=== PATIENT | male | born 1995 | race Caucasian/White ===

== ENCOUNTER 2017-03-26 05:42 | Emergency (ER) | payer OTHER ==
[~2017-03-26] VITALS: Ht 175.3 cm; Wt 113.4 kg
[~2017-03-26 05:42] MED LIST: HYDR1TAB94 PO; Percocet 5-3251 EACH PO; Zantac150 MG PO
[2017-03-26] MEDS ORDERED: Cephalexin250 MG/5 M PO (06:51)
== END 2017-03-26 07:14 | disposition home or self-care (01) ==
LOC: ER 05:42
DX: J03.90 Acute tonsillitis, unspecified (principal); F17.220 Nicotine dependence, chewing tobacco, uncomplicated
CPT/HCPCS: 96372; 99283; J0696; J1100

== ENCOUNTER 2018-06-28 13:31 | Emergency (ER) | payer OTHER ==
[~2018-06-28] VITALS: Ht 175.3 cm; Wt 108.0 kg
[~2018-06-28 13:31] MED LIST changes: +Cephalexin250 MG/5 M PO
== END 2018-06-28 15:05 | disposition home or self-care (01) ==
LOC: ER 13:31
DX: J03.90 Acute tonsillitis, unspecified (principal); F17.220 Nicotine dependence, chewing tobacco, uncomplicated
CPT/HCPCS: 87081; 87430; 99283; J1100

== ENCOUNTER 2021-02-11 20:08 | Emergency (ER) | payer OTHER ==
[~2021-02-11] VITALS: Ht 177.8 cm; Wt 97.5 kg
== END 2021-02-11 22:10 | disposition home or self-care (01) ==
LOC: ER 20:08
DX: S06.0X9A Concussion with loss of consciousness of unspecified duration, initial encounter (principal); F17.220 Nicotine dependence, chewing tobacco, uncomplicated; V49.40XA Driver injured in collision with unspecified motor vehicles in traffic accident, initial encounter
CPT/HCPCS: 70450; 72125; 99284-25

== ENCOUNTER 2021-09-06 01:52 | Emergency (ER) | payer OTHER ==
[2021-09-06 04:02] LABS: BASOPHILS ABSOLUTE AUTO 0.04 K/mm3 (0.00-0.23); BASOPHILS PERCENT AUTO 1 % (0-2); EOSINOPHILS ABSOLUTE AUTO 0.18 K/mm3 (0.00-0.68); EOSINOPHILS PERCENT AUTO 2 % (0-6); Hematocrit 43.6 % (37.0-53.0); Hemoglobin 15.6 g/dL (13.5-17.5); IMMATURE GRAN ABSOLUTE AUTO 0.02 K/mm3 (0.00-0.10); IMMATURE GRAN PERCENT AUTO 0 % (0-1); LYMPHOCYTES ABSOLUTE AUTO 2.04 K/mm3 (0.84-5.20); LYMPHOCYTES PERCENT AUTO 26 % (21-46); MONOCYTES ABSOLUTE AUTO 0.79 K/mm3 (0.16-1.47); MONOCYTES PERCENT AUTO 10 % (4-13); Mean Corpuscular HGB 31.6 pg (26.0-34.0); Mean Corpuscular HGB Conc 35.8 g/dL (31.5-36.5); Mean Corpuscular Volume 88 fL (80-100); Mean Platelet Volume 9.8 fL (9.1-12.4); NEUTROPHILS ABSOLUTE AUTO 4.83 K/mm3 (1.96-9.15); NEUTROPHILS PERCENT AUTO 61 % (41-73); Platelet Count 222 K/mm3 (150-400); RDW Coefficient Variation 12.8 % (11.7-14.2); RDW Standard Deviation 41.2 fL (35.1-46.3); Red Blood Cell Count 4.93 M/mm3 (4.30-5.90)
[2021-09-06 04:20] LABS: Albumin, Blood 3.9 g/dL (3.4-5.0); Albumin/Globulin Ratio 1.2 (0.8-1.8); Bilirubin, Total 0.4 mg/dL (0.1-1.0); Bun/Creatinine Ratio 12.6 (12.0-20.0); Creatinine, Blood 0.79 mg/dL (0.60-1.20); Globulin, Blood 3.3 g/dL (2.2-4.0); Total Protein, Blood 7.2 g/dL (6.4-8.2)
[2021-09-06 07:37] LABS: U Amphetamine Screen Not Detected; U Methamphetamine Screen Not Detected
[2021-09-06 07:38] LABS: U Barbituate Screen Not Detected; U Benzodiazapine Screen Not Detected; U Buprenorphine Screen Not Detected; U Cannabinoids Screen Not Detected; U Cocaine Screen DETECTED; U Methadone Screen Not Detected; U Opiates Screen Not Detected; U Oxycodone Screen Not Detected; U Phencyclidine Screen Not Detected; U Propoxyphene Screen Not Detected
== END 2021-09-06 07:30 | disposition home or self-care (01) ==
LOC: ER 01:52
PROVIDERS: Student in an Organized Health Care Education/Training Program
DX: S01.111A Laceration without foreign body of right eyelid and periocular area, initial encounter (principal); S00.83XA Contusion of other part of head, initial encounter; S20.211A Contusion of right front wall of thorax, initial encounter; V48.5XXA Car driver injured in noncollision transport accident in traffic accident, initial encounter; F10.129 Alcohol abuse with intoxication, unspecified; F17.220 Nicotine dependence, chewing tobacco, uncomplicated
CPT/HCPCS: 70450; 70486; 71260; 72125; 74177; 80053; 83690; 85025; G0480; Q9967

== ENCOUNTER 2024-05-23 08:27 | Day surgery (SDC) | payer BC, OTHER ==
[~2024-05-23] VITALS: Ht 177.8 cm; Wt 112.5 kg
[~2024-05-23 08:27] MED LIST changes: +Dexamethasone Sod Phos 10 MG/ML 1ML VIAL ONE; +FentaNYL Citrate 50 MCG/ML 2 ML Injection ONE; +Lactated Ringer's 1,000 ML IV ONE; +Ondansetron HCl 2 MG / ML 2ML Vial ONE; +Rocuronium Bromide 10 MG/ML 5ML Injection IV ONE; +Sugammadex Sodium 200 MG/2ML SDV (100 MG/ML) ONE; +propofoL 20 ML IV ONE
[2024-05-23] MEDS ORDERED: Dexmedetomidine HCL 200 MCG / 2 ML ONE (09:04)
[2024-05-23] MEDS ORDERED: Lactated Ringer's 1,000 ML IV ONE (09:11)
[2024-05-23] MEDS ORDERED: Midazolam HCl 1MG / ML 2ML Vial ONE (09:12)
[2024-05-23] MEDS ORDERED: FentaNYL Citrate 50 MCG/ML 2 ML Injection ONE (09:34)
--- NOTE | 2024-05-23 09:54 | NUR ---
05/23/24 0954 Alia Yanez PT TO PACU, SLEEPING WITH ORAL AIRWAY IN UPON ARRIVAL. PT SUPINE, HOB 30 DEGREES. IV PATENT. VSS. PT ON 15L NRB. SKIN PINK AND WARM. PT NOT AROUSABLE TO VERBAL STIMULI AT THIS TIME.
--- NOTE | 2024-05-23 10:23 | NUR ---
05/23/24 1023 Alia Yanez PT REQUESTING PHONE UPON ARRIVAL TO STEP DOWN. PATIENT SITTING UP TALKING. STATES PAIN IS 6/10, BUT DECLINES PAIN MEDICATION AT THIS TIME. DR JACKSON AT BEDSIDE SHORTLY. VSS.
[2024-05-23 10:24] VITALS: BP 123/74
== END 2024-05-23 11:04 | disposition home or self-care (01) ==
LOC: ORSCSDS 08:27
PROVIDERS: Otolaryngology
PROC: 0CBPXZZ Excision of Tonsils, External Approach (ICD-10-PCS; principal; 2024-05-23 10:00)
DX: J35.8 Other chronic diseases of tonsils and adenoids (principal); J03.91 Acute recurrent tonsillitis, unspecified; D10.4 Benign neoplasm of tonsil; G47.33 Obstructive sleep apnea (adult) (pediatric); E66.9 Obesity, unspecified; Z68.35 Body mass index [BMI] 35.0-35.9, adult; Z87.891 Personal history of nicotine dependence
CPT/HCPCS: 88304; J1100; J2250; J2405; J2704; J3010; J7120

== ENCOUNTER 2024-05-29 00:47 | Emergency (ER) | payer OTHER ==
[~2024-05-29] VITALS: Ht 177.8 cm; Wt 61.2 kg
[~2024-05-29 00:47] MED LIST changes: -Dexamethasone Sod Phos 10 MG/ML 1ML VIAL ONE; -FentaNYL Citrate 50 MCG/ML 2 ML Injection ONE; -Lactated Ringer's 1,000 ML IV ONE; -Ondansetron HCl 2 MG / ML 2ML Vial ONE; -Rocuronium Bromide 10 MG/ML 5ML Injection IV ONE; -Sugammadex Sodium 200 MG/2ML SDV (100 MG/ML) ONE; -propofoL 20 ML IV ONE
[2024-05-29] MEDS ORDERED: Tranexamic Acid 100 ML IV ONE (03:10)
[2024-05-29 03:30] VITALS: BP 145/88
[2024-05-29] MEDS ORDERED: Tranexamic Acid 1000 MG/10 ML 10ML Vial (SDV) INH ONE (03:35)
[2024-05-29 03:55] LABS: BASOPHILS ABSOLUTE AUTO 0.06 K/mm3 (0.00-0.23); BASOPHILS PERCENT AUTO 1 % (0-2); EOSINOPHILS ABSOLUTE AUTO 0.27 K/mm3 (0.00-0.68); EOSINOPHILS PERCENT AUTO 3 % (0-6); Hematocrit 44.4 % (37.0-53.0); Hemoglobin 15.4 g/dL (13.5-17.5); IMMATURE GRAN ABSOLUTE AUTO 0.03 K/mm3 (0.00-0.10); IMMATURE GRAN PERCENT AUTO 0 % (0-1); LYMPHOCYTES ABSOLUTE AUTO 2.78 K/mm3 (0.84-5.20); LYMPHOCYTES PERCENT AUTO 30 % (21-46); MONOCYTES ABSOLUTE AUTO 0.95 K/mm3 (0.16-1.47); MONOCYTES PERCENT AUTO 10 % (4-13); Mean Corpuscular HGB 30.7 pg (26.0-34.0); Mean Corpuscular HGB Conc 34.7 g/dL (31.5-36.5); Mean Corpuscular Volume 89 fL (80-100); Mean Platelet Volume 9.7 fL (9.1-12.4); NEUTROPHILS ABSOLUTE AUTO 5.16 K/mm3 (1.96-9.15); NEUTROPHILS PERCENT AUTO 56 % (41-73); Platelet Count 249 K/mm3 (150-400); RDW Coefficient Variation 12.3 % (11.7-14.2); RDW Standard Deviation 39.8 fL (35.1-46.3); Red Blood Cell Count 5.01 M/mm3 (4.30-5.90); White Blood Cell Count 9.25 K/mm3 (4.00-11.30)
[2024-05-29 04:28] LABS: Albumin, Blood 3.8 g/dL (3.4-5.0); Albumin/Globulin Ratio 1.1 (0.8-1.8); Bilirubin, Total 0.9 mg/dL (0.1-1.0); Bun/Creatinine Ratio 22.3 (12.0-20.0); Calcium, Blood 8.6 mg/dL (8.5-10.1); Creatinine, Blood 0.85 mg/dL (0.60-1.20); Globulin, Blood 3.4 g/dL (2.2-4.0); Potassium, Blood 4.1 mmol/L (3.5-5.5); Total Protein, Blood 7.2 g/dL (6.4-8.2)
[2024-05-29] MEDS ORDERED: ACET500 (08:50)
[2024-05-29] MEDS ORDERED: IBUP400 PO (08:51)
== END 2024-05-29 04:20 | disposition left against medical advice (07) ==
LOC: ER 00:47
PROVIDERS: Emergency Medicine
DX: J95.830 Postprocedural hemorrhage of a respiratory system organ or structure following a respiratory system procedure (principal); F17.220 Nicotine dependence, chewing tobacco, uncomplicated
CPT/HCPCS: 80053; 85025; 94640; 94664; 99282

== ENCOUNTER 2024-05-29 07:52 | Emergency (ER) | payer OTHER ==
[~2024-05-29] VITALS: Ht 177.8 cm; Wt 106.6 kg
[2024-05-29 08:31] VITALS: BP 137/90
[2024-05-29] MEDS ORDERED: ACET500 (08:50)
[2024-05-29] MEDS ORDERED: IBUP400 PO (08:51)
== END 2024-05-29 08:15 | disposition home or self-care (01) ==
LOC: ER 07:52
DX: J95.831 Postprocedural hemorrhage of a respiratory system organ or structure following other procedure (principal); Z87.891 Personal history of nicotine dependence
CPT/HCPCS: 99283

== ENCOUNTER 2024-05-29 08:37 | Day surgery (SDC) | payer BC, OTHER ==
[~2024-05-29] VITALS: Ht 177.8 cm; Wt 105.0 kg
[~2024-05-29 08:37] MED LIST changes: +EPINEPhrine HCl 1 MG / ML 30ML Vial ONE; +Oxymetazoline 0.05% Nasal Relief Spray 15mL BTL ONE
[2024-05-29] MEDS ORDERED: ACET500 (08:50)
[2024-05-29] MEDS ORDERED: IBUP400 PO (08:51)
[2024-05-29] MEDS ORDERED: Metoclopramide HCl 5MG / ML 2ML Vial ONE (08:55)
[2024-05-29] MEDS ORDERED: Citric Acid/Sodium Citrate 30 ML BTL ONE (08:55)
[2024-05-29] MEDS ORDERED: Lactated Ringer's 1,000 ML IV ONE (08:59)
[2024-05-29] MEDS ORDERED: SuccINYLCHOLINE Chloride 100 MG/5 ML 5MLSYR ONE (09:01)
[2024-05-29] MEDS ORDERED: propofoL 40 ML IV ONE (09:01)
[2024-05-29] MEDS ORDERED: Ondansetron HCl 2 MG / ML 2ML Vial ONE (09:01)
[2024-05-29] MEDS ORDERED: Dexamethasone Sod Phos 10 MG/ML 1ML VIAL ONE (09:01)
[2024-05-29] MEDS ORDERED: Rocuronium Bromide 10 MG/ML 5ML Injection IV ONE (09:01)
[2024-05-29] MEDS ORDERED: Glycopyrrolate 0.2 MG/ML 5ML VIAL ONE (09:01)
[2024-05-29] MEDS ORDERED: Phenylephrine HCl 100 MCG/ML-NS 10MLSYR (1MG/10ML) ONE (09:01)
[2024-05-29] MEDS ORDERED: Midazolam HCl 1MG / ML 2ML Vial ONE (09:02)
[2024-05-29] MEDS ORDERED: FentaNYL Citrate 50 MCG/ML 2 ML Injection ONE (09:02)
[2024-05-29] MEDS ORDERED: Sugammadex Sodium 200 MG/2ML SDV (100 MG/ML) ONE (09:15)
[2024-05-29 10:12] VITALS: BP 125/86
--- NOTE | 2024-05-29 10:59 | NUR ---
05/29/24 1059 Seda Ag PT C/O SWOLLEN TONGUE "BIGGEST COMPLAINT". MD NOTIFIED, RECOMMENDED TO SWISH AND GARGLE SALT WATER. PT INSTRUCTED TO DO THIS.
== END 2024-05-29 10:26 | disposition home or self-care (01) ==
LOC: ORSCSDS 08:37
PROVIDERS: Otolaryngology
PROC: 0W337ZZ Control Bleeding in Oral Cavity and Throat, Via Natural or Artificial Opening (ICD-10-PCS; principal; 2024-05-29 08:45)
DX: J95.830 Postprocedural hemorrhage of a respiratory system organ or structure following a respiratory system procedure (principal); E66.9 Obesity, unspecified; Z68.33 Body mass index [BMI] 33.0-33.9, adult; J95.831 Postprocedural hemorrhage of a respiratory system organ or structure following other procedure; Z87.891 Personal history of nicotine dependence
CPT/HCPCS: 80053; 85025; 94640; 94664; 99282; 99283; A9270; J0171; J0330; J1100; J2250; J2371; J2405; J2704; J2765; J3010; J7120